=== PATIENT | female | born 1980 | race Native Hawaiian/Other Pacific Islander ===

== ENCOUNTER 2017-07-02 09:02 | Outpatient (CLI) | payer BC | END 2017-07-02 19:04 | disposition home or self-care (01) | LOC: MAMMO 09:02 | DX: N63.10 Unspecified lump in the right breast, unspecified quadrant (principal) ==

== ENCOUNTER 2019-03-07 08:51 | Outpatient (CLI) | payer BC | END 2019-03-07 19:08 | disposition home or self-care (01) | LOC: CT 08:51 | DX: R31.0 Gross hematuria (principal) ==

== ENCOUNTER 2019-05-16 02:12 | Emergency (ER) | payer BC ==
[~2019-05-16] VITALS: Ht 167.6 cm; Wt 101.2 kg
[2019-05-16 03:18] VITALS: BP 128/88; TEMP 98.3
== END 2019-05-16 03:18 | disposition home or self-care (01) ==
LOC: ED 02:12
DX: T78.3XXA Angioneurotic edema, initial encounter (principal)
CPT/HCPCS: 96372; 99283; J1200; J2930

== ENCOUNTER 2020-10-18 07:55 | Outpatient (CLI) | payer BC | END 2020-10-18 19:16 | disposition home or self-care (01) | LOC: CT 07:55 | PROVIDERS: ATTEND Specialist | DX: N20.0 Calculus of kidney (principal); R10.9 Unspecified abdominal pain ==

== ENCOUNTER 2021-06-23 14:56 | Outpatient (CLI) | payer OTHER | END 2021-06-23 20:09 | disposition home or self-care (01) | LOC: MAMMO 14:56 | PROVIDERS: ATTEND Obstetrics & Gynecology | DX: Z12.31 Encounter for screening mammogram for malignant neoplasm of breast (principal) ==

== ENCOUNTER 2022-07-04 10:19 | Outpatient (CLI) | payer BC | END 2022-07-04 20:12 | disposition home or self-care (01) | LOC: MAMMO 10:19 | PROVIDERS: ATTEND Registered Nurse | DX: Z12.31 Encounter for screening mammogram for malignant neoplasm of breast (principal) ==